=== PATIENT | female | born 2000 | race Caucasian/White ===

== ENCOUNTER 2022-05-29 12:46 | Day surgery (SDC) | payer OTHER ==
[2022-05-27 15:31] VITALS: BMI 25.1
[2022-05-29 14:38] VITALS: RESP 16; TEMP 97.8
[2022-05-29 15:08] VITALS: BP 111/64; PULSE 61
== END 2022-05-29 15:14 | disposition home or self-care (01) ==
LOC: FASU-ENDO 12:46
PROVIDERS: ATTEND Internal Medicine Gastroenterology
PROC: 0DBL8ZX Excision of Transverse Colon, Via Natural or Artificial Opening Endoscopic, Diagnostic (ICD-10-PCS; 2022-05-29)
PROC: 0DBP8ZX Excision of Rectum, Via Natural or Artificial Opening Endoscopic, Diagnostic (ICD-10-PCS; 2022-05-29)
PROC: 0DBM8ZX Excision of Descending Colon, Via Natural or Artificial Opening Endoscopic, Diagnostic (ICD-10-PCS; 2022-05-29)
PROC: 0DBK8ZX Excision of Ascending Colon, Via Natural or Artificial Opening Endoscopic, Diagnostic (ICD-10-PCS; principal; 2022-05-29 13:54)
DX: Z87.19 Personal history of other diseases of the digestive system (principal); K64.1 Second degree hemorrhoids; K63.89 Other specified diseases of intestine
CPT/HCPCS: 84703; 88305-TC